=== PATIENT | male | born 1955 | race Caucasian/White ===

== ENCOUNTER 2017-01-20 12:24 | Emergency (ER) | payer BC ==
[2017-01-20 12:31] VITALS: BP 164/91
--- NOTE | 2017-01-20 12:47 | EDM.PDOC ---
ED HPI GENERAL MEDICAL PROBLEM - General Chief Complaint: Allergic Reaction Stated Complaint: STUNG BY WASP ALLERGIC FUNNYFELLING THROAT [id number] Time Seen by Provider: 01/20/17 12:40 Source of Information: Reports: Patient History Limitations: Reports: No Limitations - History of Present Illness INITIAL COMMENTS - FREE TEXT/NARRATIVE: 61 yo male presents with hives and feeling of tightness in his throat after being stung by a wasp to the back of the neck. Hives noted to chest and upper arms. Denies pain but states that he is having pressure and tightness to his chest. States " it feels like I swallowed something and it is stuck in my throat." No other complaints. Onset: Today, Sudden Duration: Waxing/Waning Location: Reports: Neck, Chest Quality: Reports: Pressure Improves with: Reports: None Worsens with: Reports: None Associated Symptoms: Reports: No Other Symptoms - Related Data Allergies Allergy/AdvReac Type Severity Reaction Status Date / Time No Known Allergies Allergy Verified 01/20/17 12:28 Home Meds: Home Meds atorvaSTATin Calcium [Atorvastatin Calcium] 10 mg PO DAILY 01/14/16 [History] Past Medical History Cardiovascular History: Reports: High Cholesterol Social & Family History - Family History Family Medical History: Noncontributory - Tobacco Use Smoking Status *Q: Current Every Day Smoker Years of Tobacco use: 40 Packs/Tins Daily: 1 Second Hand Smoke Exposure: Yes - Caffeine Use Caffeine Use: Reports: Coffee - Alcohol Use Days Per Week of Alcohol Use: 2 Number of Drinks Per Day: 3 Total Drinks Per Week: 6 - Recreational Drug Use Recreational Drug Use: No ED ROS ALLERGIC REACTION - Review of Systems Review Of Systems: ROS reveals no pertinent complaints other than HPI. ED EXAM GENERAL NO PERIP PULSE - Physical Exam Exam: See Below Exam Limited By: No Limitations General Appearance: Alert, WD/WN, No Apparent Distress Eye Exam: Bilateral Eye: PERRL Throat/Mouth: Normal Inspection, Normal Lips, Normal Teeth, Normal Gums, Normal Oropharynx, Normal Voice, No Airway Compromise Head: Atraumatic, Normocephalic Neck: Normal Inspection, Supple, Non-Tender, Full Range of Motion Respiratory/Chest: No Respiratory Distress, Lungs Clear, Normal Breath Sounds, No Accessory Muscle Use, Chest Non-Tender Cardiovascular: Normal Peripheral Pulses, Regular Rate, Rhythm, No Edema, No Gallop, No JVD, No Murmur, No Rub GI/Abdominal: Normal Bowel Sounds, Soft, Non-Tender, No Organomegaly, No Distention, No Abnormal Bruit, No Mass Extremities: Normal Inspection, Normal Range of Motion, Non-Tender, Normal Capillary Refill, No Pedal Edema Neurological: Alert, Oriented, CN II-XII Intact, Normal Cognition, Normal Gait, No Motor/Sensory Deficits Skin Exam: Warm, Dry, Intact, Erythema, Rash (hives diffuse torso) Lymphatic: No Adenopathy Course - Vital Signs Last Recorded V/S: Last Vital Signs Temp 98 F 01/20/17 12:29 Pulse 88 01/20/17 12:29 Resp 18 01/20/17 12:29 BP 164/91 H 01/20/17 12:29 Pulse Ox 99 01/20/17 12:29 - Orders/Labs/Meds Orders: Active Orders 24 hr Category Date Time Status EKG Documentation Completion [RC] STAT Care 01/20/17 12:53 Active Chest 1V Frontal [CR] Stat Exams 01/20/17 12:53 Taken Sodium Chloride 0.9% [Saline Flush] Med 01/20/17 12:53 Active 10 ml FLUSH ASDIRECTED PRN Saline Lock Insert [OM.PC] Stat Oth 01/20/17 12:53 Ordered Medication Orders Sodium Chloride (Saline Flush) 10 ml FLUSH ASDIRECTED PRN PRN Reason: Keep Vein Open Last Admin: 01/20/17 12:58 Dose: 10 ml Labs: Laboratory Tests 01/20/17 01/20/17 01/20/17 Range/Units 12:42 12:42 12:42 WBC 9.0 (5.0-10.0) 10^3/uL RBC 4.20 L (4.6-6.2) 10^6/uL Hgb 14.0 (14.0-18.0) g/dL Hct 40.9 (40.0-54.0) % MCV 97.4 (80-100) fL MCH 33.3 (27.0-34.0) pg MCHC 34.2 (33.0-35.0) g/dL Plt Count 316 (150-450) 10^3/uL Neut % (Auto) 57.9 (42.2-75.2) % Lymph % (Auto) 32.8 (20.5-50.1) % [place] % (Auto) 7.4 (2-8) % Eos % (Auto) 1.7 (1.0-3.0) % Baso % (Auto) 0.2 (0.0-1.0) % Sodium 143 (135-145) mmol/L Potassium 3.9 (3.6-5.0) mmol/L Chloride 106 (101-111) mmol/L Carbon Dioxide 24.0 (21.0-31.0) mmol/L Anion Gap 16.9 BUN 13 (7-18) mg/dL Creatinine 0.7 (0.6-1.3) mg/dL Est Cr Clr Drug Dosing 98.41 mL/min Estimated GFR (MDRD) > 60 Glucose 94 (74-105) mg/dL Calcium 9.6 (8.4-10.2) mg/dl Creatine Kinase 80 (26-174) IU/L Creatine Kinase Index 1.8 (0-2.4) % CK-MB (CK-2) 1.40 (0.4-4.7) ng/mL Troponin I 0.02 (0.00-0.02) ng/ml Meds: Medications Generic Name Dose Route Start Last Admin Trade Name Freq PRN Reason Stop Dose Admin Sodium Chloride 10 ml 01/20/17 12:53 01/20/17 12:58 Saline Flush FLUSH 10 ml ASDIRECTED PRN Administration Keep Vein Open Discontinued Medications Generic Name Dose Route Start Last Admin Trade Name Freq PRN Reason Stop Dose Admin Diphenhydramine HCl 50 mg 01/20/17 12:51 01/20/17 12:57 Benadryl IVPUSH 01/20/17 12:52 50 mg ONETIME ONE Administration Famotidine 20 mg 01/20/17 12:51 01/20/17 12:57 Pepcid IVPUSH 01/20/17 12:52 20 mg ONETIME ONE Administration Sodium Chloride 1,000 mls @ 999 mls/hr 01/20/17 12:52 01/20/17 12:57 Normal Saline IV 01/20/17 13:52 999 mls/hr .BOLUS ONE Administration Methylprednisolone Sodium Succinate 125 mg 01/20/17 12:51 01/20/17 12:57 Solu-Medrol IVPUSH 01/20/17 12:52 125 mg ONETIME ONE Administration - Re-Assessments/Exams Free Text/Narrative Re-Assessment/Exam: 01/20/17 14:08 Hives have improved. Pt states that tightness is no longer present. Will dc home Departure - Departure Time of Disposition: 14:08 Disposition: Home, Self-Care 01 Clinical Impression: Allergic reaction to bee sting Wasp sting Qualifiers: Encounter type: initial encounter Injury intent: accidental or unintentional Qualified Code(s): T63.461A - Toxic effect of venom of wasps, accidental ( unintentional), initial encounter - Discharge Information Instructions: Hives, Anaphylactic Reaction, Bee, Wasp, or Hornet Sting Forms: ED Department Discharge Additional Instructions: Make sure to take the benadryl and prednisone as directed. Follow up with your PCP. return for worsening symptoms or shortness of breath - My Orders Last 24 Hours: My Active Orders 01/20/17 12:53 EKG Documentation Completion [RC] STAT Chest 1V Frontal [CR] Stat Sodium Chloride 0.9% [Saline Flush] 10 ml FLUSH ASDIRECTED PRN Saline Lock Insert [OM.PC] Stat - Assessment/Plan Last 24 Hours: My Active Orders 01/20/17 12:53 EKG Documentation Completion [RC] STAT Chest 1V Frontal [CR] Stat Sodium Chloride 0.9% [Saline Flush] 10 ml FLUSH ASDIRECTED PRN Saline Lock Insert [OM.PC] Stat
[2017-01-20] MEDS ORDERED: Famotidine 20 MG/2 ML SDV IVPUSH ONE (12:51)
[2017-01-20] MEDS ORDERED: methylPREDNISolone Sodium Succinate 125 MG/2 ML SDV IVPUSH ONE (12:51)
[2017-01-20] MEDS ORDERED: diphenhydrAMINE 50 MG/ML SDV IVPUSH ONE (12:51)
[2017-01-20] MEDS ORDERED: Sodium Chloride 0.9% 1,000 ML IV ONE (12:52)
[2017-01-20] MEDS ORDERED: Sodium Chloride 0.9% 10 ML Syringe FLUSH PRN (12:53)
[2017-01-20 13:12] LABS: CHLORIDE,CL 106 mmol/L (101-111); SODIUM,NA 143 mmol/L (135-145)
--- NOTE | 2017-01-22 15:10 | EKG ---
01/20/2017- GUSTAVO VILLEGAS - EKG per my reading shows sinus rhythm at the rate of 80. [facility] /[id number]
== END 2017-01-20 14:14 | disposition home or self-care (01) ==
LOC: DL.ED 12:24
DX: T63.461A Toxic effect of venom of wasps, accidental (unintentional), initial encounter (principal); R07.0 Pain in throat; E78.00 Pure hypercholesterolemia, unspecified; F17.210 Nicotine dependence, cigarettes, uncomplicated; Z79.899 Other long term (current) drug therapy
CPT/HCPCS: 36415; 71010; 80048; 82550; 82553; 84484; 85025; 93005; 96361; 96374; 96375; 99284; J1200; J2930; J7030; J7050; S0028